=== PATIENT | male | born 1990 | race Two or more races ===

== ENCOUNTER 2016-04-24 12:57 | Emergency (ER) | payer OTHER ==
[~2016-04-24] VITALS: Ht 170.2 cm; Wt 57.6 kg
[~2016-04-24 12:57] MED LIST: AMOXICILLI200 MG/5 M PO; ATHLETIC FOOT C30 GM TOPIC; BACTRIM-DS1 EA ORAL; CEPHALEXIN500 MG ORAL; IBUPROFEN600 MG ORAL; NKM; NORCO 5-325 TA1 EACH ORAL; VICODIN 5-5001 EACH PO
[2016-04-24 14:37] VITALS: BP 131/68
[2016-04-24] MEDS ORDERED: BACTRIM DS TAB1 EAC1 ORAL (15:00)
[2016-04-24 15:10] VITALS: BP 131/68
--- NOTE | 2016-04-24 18:56 | Emergency Room Report ---
History of Present Illness General Chief Complaint: Skin Rash/Abscess Present Illness HPI The patient is a 25 all male presenting for possible insect bite of the left buttock. The patient noticed pain and some swelling to the left buttock one week prior. Pain is described as a 10 out of 10 dull ache it is worse with touch. The patient did not visualize any insect and denies injections. Pain does not radiate. Patient denies numbness or tingling the the area. The patient does admit to discharge which occurred after a hot shower and is described as yellow with blood. The patient denies fever, chills, SOB, CP, fatigue, [place], dizziness Allergies: Coded Allergies: No Known Allergies (Unverified , 11/11/12) Patient History Past Medical History: see triage record Pertinent Family History: none Reviewed Nursing Documentation: PMH: Agreed, PSxH: Agreed Nursing Documentation-PMH Past Medical History: No History, Except For Hx Asthma: Yes - bronchitis Review of Systems All Other Systems: negative except mentioned in HPI Physical Exam Vital Signs Date Time Temp Pulse Resp B/P Pulse Ox O2 Delivery O2 Flow Rate FiO2 04/24/16 13:33 97.9 87 18 131/68 99 Room Air Sp02 EP Interpretation: reviewed, normal General Appearance: no apparent distress, alert, GCS 15, non-toxic Head: normocephalic, atraumatic Eyes: bilateral eye PERRL, bilateral eye normal inspection ENT: hearing grossly normal, normal pharynx, no angioedema, normal voice Neck: normal inspection, full range of motion Gastrointestinal: normal bowel sounds, non tender, soft, non-distended, no guarding, no rebound Musculoskeletal: back normal, gait/station normal, normal range of motion Neurologic: alert, oriented x3, responsive, motor strength/tone normal, sensory intact, speech normal Psychiatric: judgement/insight normal, memory normal, mood/affect normal, no suicidal/homicidal ideation Skin: well hydrated, normal turgor, other - L buttock: Lateral 2cm diameter indurated mass. Tender and erythematous. No DC Lymphatic: no adenopathy Medical Decision Making PA Attestation Dr. edge is my supervising physician. Patient management was discussed with my supervising physician Diagnostic Impression: Primary Impression: Abscess ER Course The patient is a 25 all male presenting for possible insect bite of the left buttock. Differential diagnoses considered but not limited to: abscess, cellulitis, insect bite PE: Vitals WNL. Afebrile L buttock: Lateral 2cm diameter indurated mass. Tender and erythematous. No DC. No fluctuance. There is a central healed opening. I explained to the patient that incision and drainage is not indicated at this time. The patient will be discharged home with a prescription for Bactrim and is given indications to return for incision and drainage. ER precautions are given Last Vital Signs Date Time Temp Pulse Resp B/P Pulse Ox O2 Delivery O2 Flow Rate FiO2 04/24/16 15:10 97.9 87 18 131/68 99 Room Air Status: improved Disposition: HOME, SELF-CARE Condition: Improved Scripts Trimethoprim/Sulfamethoxazole 160/800* (BACTRIM DS TABLET*) 1 Each Tablet 1 TAB ORAL TWICE A DAY, #14 TAB Prov: NILTON SY 04/24/16 Patient Instructions: Abscess Additional Instructions: I discussed my findings with the patient. All questions and concerns have been answered. Treatment and medication compliance have been addressed. I advised the patient that they need to follow up with PMD in 3-5 days. Return to ED if symptoms worsen, new symptoms arise, or if needed for any reason. Patient verbalized understanding of discharge instructions. The patient is given instructions to return if he notices abscess becomes softer , larger, more painful, fever, chills, or for any reason NILTON SY Apr 24, 2016 18:56
== END 2016-04-24 15:10 | disposition home or self-care (01) ==
LOC: EMR 13:52
DX: L02.31 Cutaneous abscess of buttock (principal); J45.909 Unspecified asthma, uncomplicated
CPT/HCPCS: 99282